=== PATIENT | female | born 1960 | race Asian ===

== ENCOUNTER 2024-06-20 17:23 | Emergency (ER) | payer OTHER, SELFPAY ==
[2024-06-20 17:45] VITALS: BP 177/108
[2024-06-20 18:19] LABS: % Basophils 0.5 % (0-2); % Eosinophils 2.7 % (0-6); % Lymphocytes 39.2 % (20.5-51.1); % Monocytes 6.3 % (1.7-9.3); % Neutrophils 51.3 % (42.2-75.2); Absolute Eosinophils 0.1 10^3/uL (0-0.7); Absolute Lymphocytes 1.4 10^3/uL (1.2-3.4); Absolute Monocytes 0.2 10^3/uL (0.1-0.6); Absolute Neutrophils 1.9 10^3/uL (1.4-6.5); Hematocrit 41.1 % (37.0-47.0); Hemoglobin 13.9 g/dL (12.0-16.0); Mean Corp Hgb Conc. 33.8 g/dL (33.0-37.0); Mean Corpuscular Hgb 29.8 pg (27.0-31.0); Mean Platelet Volume 10.3 fL (7.4-10.4); Nucleated Red Blood Cells % 0 %; Platelet Count 179 10^3/uL (130-400); Red Blood Cell Count 4.67 10^6/uL (4.20-5.40); Red Cell Dist. Width 12.1 % (11.5-14.5); White Blood Cell Count 3.7 10^3/uL (4.8-10.8)
[2024-06-20 18:33] LABS: ALT (SGPT) 23 U/L (0-35); AST (SGOT) 23 U/L (14-36); Albumin 4.5 g/dl (3.5-5.0); Alkaline Phosphatase 64 U/L (38-126); Blood Urea Nitrogen 16 mg/dl (7-17); Calcium 9.2 mg/dl (8.4-10.2); Carbon Dioxide 27 mmol/L (22-30); Chloride 104 mmol/L (98-107); Glucose 138 mg/dl (70-99); Potassium 3.7 mmol/L (3.5-5.1); Sodium 137 mmol/L (135-145); Total Bilirubin 0.3 mg/dl (0.2-1.3); Total Protein 6.8 g/dl (6.3-8.2); eGFR > 60.00
[2024-06-20 18:44] LABS: Troponin I < 0.012 ng/ml
[2024-06-20 22:00] VITALS: BP 137/72
--- NOTE | 2024-06-20 23:05 | ED.GENMED ---
History of Present Illness
General
Chief Complaint: Cardiac Symptoms
Source: patient and family
Time Seen by Provider: 06/20/24 22:55
History of Present Illness
History of Present Illness:
This patient is a 63-year-old female who states that she was sitting at her computer at 10 AM and started to feel discomfort in her upper to mid back that felt like someone was pushing her also described as feeling like a balloon was being blown up
in her thorax, associated with feeling like her breathing was more difficult and her lower jaw felt 'sore and painful'. She noticed this was better when she took a deep breath and she denies associated frontal or chest pain. The episode lasted
about 5 to 10 minutes and resolved when she took a sublingual [place] medication. Since that time she has had an occasional short-lived episode of 'pushing' in her back. She denies associated nausea, vomiting, diaphoresis, fever, chills, abdominal
pain, leg swelling, or other complaints. She does note a family history of coronary disease. Patient flew back from [place] within the last few days.
Past History
Past History
ED Past Medical History: HTN
ED Past Surgical History: None
Social History
Tobacco: Non-smoker
Alcohol: None
Drug: None
Living: with family
Phy Exam
Physical Exam
Physical Exam:
GENERAL: Alert , in no apparent distress
EYE: pupils equal and reactive
NECK: Supple, no significant adenopathy.
ENT: o/p clr, mmm.
CARDIAC: Regular rate and rhythm .
LUNGS: Clear breath sounds bilaterally, no acute respiratory distress, no wheezes/rales/rhonchi
ABDOMEN: Soft, without focal tenderness, no r/g, no cvat
NEUROLOGICAL: Alert and oriented, no focal neuro deficits
SKIN: Warm and dry, skin intact.
MUSCULOSKELETAL: No edema, well perfused.
PSYCH: Normal and appropriate interaction.
Course
Orders/Labs/Results
Orders:
Orders
06/20/24 17:25
ECG [Electrocardiogram (*1)] Urgent
Reason for Study: Chest Pain
EKG- Treatment ONCE
06/20/24 17:50
Chest [CR Chest - 2 Views ] Urgent
Comment:
Reason For Exam: chest pain
06/20/24 17:55
Complete Blood Count/With Diff Urgent
Comprehensive Metabolic Panel Urgent
Troponin I Urgent
06/20/24 23:05
D-Dimer Urgent
Troponin I Urgent
06/21/24 03:28
Troponin I Urgent
Abnormal Lab Results
06/20/24
17:55
WBC 3.7 L 10^3/uL
(4.8-10.8)
Glucose 138 H mg/dl
(70-99)
06/20/24 17:55
06/20/24 17:55
Vital Signs
Initial and Last Documented VS:
Initial Vital Signs
Pulse Resp BP Pulse Ox
62 18 177/108 99
06/20/24 17:45 06/20/24 17:45 06/20/24 17:45 06/20/24 17:45
Last Documented Vital Signs
Pulse Resp BP Pulse Ox
65 17 137/72 98
06/20/24 22:33 06/20/24 22:00 06/20/24 22:00 06/20/24 22:00
Update Note
Update Note:
Patient presents to the Emergency Department with ___back pain
Number and Complexity of Problems Addressed at the Encounter
� Chronic conditions affecting care:
� Acute Exacerbation and/or Progression of Chronic Illness:
� Differential Diagnosis includes: But not limited to ACS, pneumothorax, musculoskeletal, PE, etc. etc.
Amount and/or Complexity of Data to be Reviewed and Analyzed
� I performed an independent evaluation of and my interpretation is:
EKG: Read by me, sinus bradycardia, no acute ischemia
CT:
Xrays: Chest x-ray read by radiology NAD
Laboratory Studies: Generally unremarkable
Other:
� Review of other/old records reveals:
� Clinical information was obtained by an independent historian: Son who is bedside
� Prescriptions/Medications Considered but not given:
� Further testing considered but not performed:
Risk of Complications and/or Morbidity or Mortality of Patient Management
� Social determinants of health affecting care:
� Discussion with other providers (PCP, Hospitalists, Consultants, etc):
� Escalation of care including admission/observation vs risk of discharge considered:
ED Attending Note
-
Portions of this chart may have been created with voice recognition software.� Occasional wrong word or��sound alike� substitutions may have occurred due to the inherent limitations of voice recognition software.
Discharge Plan
Departure
Patient Disposition: Home (Routine Discharge)
Date of Disposition: 06/21/24
Time of Disposition: 04:06
Patient with high blood pressure during this ER visit?: Yes
Condition: Good
Discharge Problem:
Back pain
Instructions: Back Pain, BLOOD PRESSURE
Referrals:
Michael Germain MD [Family Provider] - Tomorrow
Activity Restrictions/Additional Instructions:
PLEASE SEE YOUR DOCTOR IN PROMPT FOLLOW UP. IF YOU DEVELOP CHEST PAIN, FEVER, VOMITING, DIZZINESS, TROUBLE BREATHING, RECURRENT/NEW BACK PAIN, OR OTHER WORRISOME SIGNS, GO TO THE ER IMMEDIATELY!
Interventions
Interventions:
*Risk Screen - Suicide Last Done: 06/20/24 17:45
*General Assessment Last Done: 06/20/24 21:55
*Neglect/Abuse Screening Last Done: 06/20/24 22:48
ED- Fall Risk Assessment Last Done: 06/20/24 21:54
ED- Pulmonary Assessment Last Done: 06/20/24 21:54
ED- Cardiac Assessment Last Done: 06/20/24 22:58
Discharge Date and Time
Print Language: ARABIC
[2024-06-21 00:52] LABS: D-Dimer < 0.27 ug/mlFEU (0.00-0.50)
[2024-06-21 00:57] LABS: Troponin I 0.016 ng/ml
[2024-06-21 04:05] LABS: Troponin I < 0.012 ng/ml
[2024-06-21 04:38] VITALS: BP 161/87
== END 2024-06-21 04:45 | disposition home or self-care (01) ==
LOC: EMR 17:23
PROVIDERS: Physician Assistant; EMERGENCY PHYSICIAN Emergency Medicine; FAMILY PHYSICIAN Family Medicine
DX: M54.6 Pain in thoracic spine (principal); R68.84 Jaw pain; R06.00 Dyspnea, unspecified; I10 Essential (primary) hypertension
CPT/HCPCS: 99283; 71046; 80053; 84484; 85025; 85379; 93005